=== PATIENT | female | born 1950 | race Caucasian/White ===

== ENCOUNTER 2020-11-27 11:52 | Emergency (ER) | payer OTHER ==
[~2020-11-27] VITALS: Ht 139.7 cm; Wt 61.0 kg
[2020-11-27 11:52] VITALS: BP 171/82
[2020-11-27] MEDS ORDERED: ACETAMINOPHEN 500 MG TABLET PO ONE ×2 (12:15→13:18)
[2020-11-27] MEDS ORDERED: IBUPROFEN 600 MG TABLET. PO ONE (12:15)
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
== END 2020-11-27 13:56 | disposition home or self-care (01) ==
LOC: ER 11:52
DX: S60.012A Contusion of left thumb without damage to nail, initial encounter (principal); V89.2XXA Person injured in unspecified motor-vehicle accident, traffic, initial encounter; Y93.89 Activity, other specified; Y92.89 Other specified places as the place of occurrence of the external cause; Y99.8 Other external cause status
CPT/HCPCS: 73130; 99283

== ENCOUNTER 2021-07-19 11:04 | Observation (INO) | payer MEDICARE, BC ==
[~2021-07-19] VITALS: Ht 139.7 cm; Wt 61.8 kg
--- NOTE | 2021-07-19 11:29 | PHYS DOC ---
Past History Past Medical History: Asthma, COPD, CVA Additional Past Medical Histor: DVT (TIKA TANNER APRN) Past Surgical History: Hysterectomy, Other Additional Past Surgical Histo: Bladder sx, Carpal tunnel, trigger finger (TIKA TANNER APRN) Alcohol Use: None (TIKA TANNER APRN) General Adult EDM: Chief Complaint: SHORTNESS OF BREATH HPI: HPI: Patient is a 71-year-old female that presents today with increased shortness of breath. Patient states on June 24 her and her left and traveled by car to [place] and to [place] they returned on July 08. Patient states that since July 08 she has had increasing shortness of breath today she is unable to get a deep breath, not able to walk short distances, unable to talk in complete sentences. Patient does have a history of COPD and asthma. Patient states that she had COVID-19 vaccines, dates that she had had the injections 2 weeks before leaving on their trip on June 24. Patient states that throughout the travels they did take frequent breaks for walking around because she does have a history of clots in the past. Initial O2 Sat 84% on room air. (TIKA TANNER APRN) Review of Systems: Review of Systems: Constitutional: Denies fever or chills Eyes: Denies change in visual acuity HENT: Denies nasal congestion or sore throat Respiratory: shortness of breath Cardiovascular: Denies chest pain or edema GI: Denies abdominal pain, nausea, vomiting, bloody stools or diarrhea : Denies dysuria Musculoskeletal: Denies back pain or joint pain Integument: Denies rash Neurologic: Denies headache, focal weakness or sensory changes Endocrine: Denies polyuria or polydipsia Lymphatic: Denies swollen glands Psychiatric: Denies depression or anxiety (TIKA TANNER APRN) Allergies: Allergies: Allergies Coded Allergies Type Severity Reaction Last Updated Verified niacin Allergy Unknown 11/27/20 Yes (TIKA TANNER APRN) Physical Exam: PE: Constitutional: Well developed, well nourished, acute distress [] HENT: Normocephalic, atraumatic, bilateral external ears normal, oropharynx dry, no oral exudates, nose normal. [] Eyes: PERRLA, EOMI, conjunctiva normal, no discharge. [] Neck: Normal range of motion, no tenderness, supple, stridor noted. [] Cardiovascular:Heart rate regular rhythm, no murmur [] Lungs & Thorax: Increased work of breathing noted, bilateral breath sounds diminished with scattered wheezes. Abdomen: Bowel sounds normal, soft, no tenderness, no masses, no pulsatile masses. [] Skin: Warm, diaporitic no erythema, no rash. [] Back: No tenderness, no CVA tenderness. [] Extremities: No tenderness, no cyanosis, no clubbing, ROM intact, no edema. [] Neurologic: Alert and oriented X 3, normal motor function, normal sensory function, no focal deficits noted. [] Psychologic: Affect normal, judgement normal, mood normal. [] (TIKA TANNER APRN) Current Patient Data: Labs: Laboratory Tests Test 07/19/21 11:18 07/19/21 11:22 07/19/21 11:39 White Blood Count 11.5 x10^3/uL Red Blood Count 3.95 x10^6/uL Hemoglobin 12.9 g/dL Hematocrit 38.9 % Mean Corpuscular Volume 99 fL Mean Corpuscular Hemoglobin 33 pg Mean Corpuscular Hemoglobin Concent 33 g/dL Red Cell Distribution Width 14.1 % Platelet Count 461 x10^3/uL Neutrophils (%) (Auto) 68 % Lymphocytes (%) (Auto) 19 % Monocytes (%) (Auto) 7 % Eosinophils (%) (Auto) 5 % Basophils (%) (Auto) 1 % Neutrophils # (Auto) 7.8 x10^3uL Lymphocytes # (Auto) 2.2 x10^3/uL Monocytes # (Auto) 0.8 x10^3/uL Eosinophils # (Auto) 0.6 x10^3/uL Basophils # (Auto) 0.1 x10^3/uL Sodium Level 138 mmol/L Potassium Level 4.0 mmol/L Chloride Level 101 mmol/L Carbon Dioxide Level 24 mmol/L Anion Gap 13 Blood Urea Nitrogen 14 mg/dL Creatinine 1.1 mg/dL Estimated GFR (Cockcroft-Gault) 48.7 BUN/Creatinine Ratio 13 Glucose Level 110 mg/dL Calcium Level 9.3 mg/dL Total Bilirubin 0.2 mg/dL Aspartate Amino Transf (AST/SGOT) 24 U/L Alanine Aminotransferase (ALT/SGPT) 30 U/L Alkaline Phosphatase 87 U/L Total Protein 8.0 g/dL Albumin 3.7 g/dL Albumin/Globulin Ratio 0.9 Influenza Type A (Rapid) Negative Influenza Type B (Rapid) Negative SARS-CoV-2 Antigen (Rapid) Negative Blood Gas pH 7.35 Blood Gas PCO2 49 mmHg Blood Gas PO2 220 mmHg Blood Gas HCO3 27 mmol/L Arterial Bld O2 Saturation (Calc) 100 % FiO2 36 % Current Medications Medications (Trade) Dose Ordered Sig/Shiva Route PRN Reason Start Time Stop Time Status Last Admin Dose Admin Albuterol/ Ipratropium (Duoneb) 3 ml 1X ONCE NEB 07/19/21 11:30 07/19/21 11:32 DC 07/19/21 11:42 Dexamethasone Sodium Phosphate (Decadron) 10 mg 1X ONCE IVP 07/19/21 11:30 07/19/21 11:32 DC 07/19/21 11:42 Labetalol HCl (Normodyne) 10 mg 1X ONCE IVP 07/19/21 11:45 07/19/21 11:46 DC 07/19/21 11:43 Vital Signs: Vital Signs Date Time Temp Pulse Resp B/P (MAP) Pulse Ox O2 Delivery O2 Flow Rate FiO2 07/19/21 11:18 102 22 98 Nasal Cannula 3.0 07/19/21 11:10 98.4 (TIKA TANNER WAXING MACHINE OPERATOR) EKG: EKG: EKG done at [address] Candelaria is no STEMI , interpretation shows sinus rhythm with a leftward axis noted [] (TIKA TANNER WAXING MACHINE OPERATOR) Radiology/Procedures: Radiology/Procedures: [PROCEDURE: CHEST AP ONLY XR CHEST 1V CLINICAL INDICATIONS: Reason: shortness of breath / Spl. Instructions: / History: COMPARISON: None available. Findings: Calcified granuloma of the right midlung zone is seen. No acute lung infiltrate or pleural effusion or pulmonary edema or lung mass or pneumothorax is seen. The heart size, pulmonary vasculature, mediastinum and both kae are unremarkable. IMPRESSION: No acute radiographic abnormality is seen. Electronically signed by: Terry Sanchez MD (07/19/2021 11:52 AM) [id number]] (TIKA TANNER APRN) Heart Score: C/O Chest Pain: N/A Risk Factors: Risk Factors: DM, Current or recent (<one month) smoker, HTN, HLP, family history of CAD, obesity. Risk Scores: Score 0 - 3: 2.5% MACE over next 6 weeks - Discharge Home Score 4 - 6: 20.3% MACE over next 6 weeks - Admit for Clinical Observation Score 7 - 10: 72.7% MACE over next 6 weeks - Early Invasive Strategies (TIKA TANNER APRN) Course & Med Decision Making: Course & Med Decision Making Pertinent Labs and Imaging studies reviewed. (See chart for details) 1141 after further discussion with the nursing staff and Dr. Candelaria it was decided to place patient on BiPAP. 12:00 reexamined patient, less audible wheezes continuing to have wheezes in lungs but air movement is noted. Respiratory rate down to 22 a minute, sats at 94% on 5 L. No BiPAP at this time we will continue to monitor. Rapid flu and Covid negative at this time. Concern for PE patient is unable to lie flat at this time will discuss with Dr. Candelaria. [address] Ace regarding admitting to the hospital overnight for observation he is agreeable, requesting a PE study due to recent travels. Spoke to patient about admitting and the need for a PE study patient is agreeable with this will be ordered. (TIKA TANNER APRN) Dragon Disclaimer: Dragon Disclaimer: This electronic medical record was generated, in whole or in part, using a voice recognition dictation system. (TIKA TANNER APRN) Departure Departure: Impression: Primary Impression: Shortness of breath Additional Impression: COPD exacerbation Disposition: ADMITTED INPATIENT Condition: STABLE Referrals: DONNA SCHERER MD (PCP) Attending Signature Attending Signature I have reviewed the PA/STUNT MAN's note and plan of care. I was available for consultation as needed during the patient's visit in the emergency department. I agree with the clinical impression, plan, and disposition. (JODIE CANDELARIA DO) TIKA TANNER APRN Jul 19, 2021 11:28 JODIE CANDELARIA DO Jul 20, 2021 00:47
[2021-07-19] MEDS ORDERED: DEXAMETHASONE SOD PHOS 10 MG/ML VIAL. IVP ONE (11:30)
[2021-07-19] MEDS ORDERED: IPRATRPIUM/ALBUTEROL 0.5/2.5MG 3 ML NEBU. NEB ONE (11:30)
[2021-07-19] MEDS ORDERED: LABETALOL 20 MG/4 ML DISP.SYRIN. IVP ONE (11:45)
[2021-07-19 11:53] LABS: CALCIUM 9.3 mg/dL (8.5-10.1); CREATININE 1.1 mg/dL (0.6-1.0); GFR 48.7
[2021-07-19 11:54] LABS: BASO # 0.1 x10^3/uL (0.0-0.2); BASO % 1 % (0-3); EOS # 0.6 x10^3/uL (0.0-0.7); EOS % 5 % (0-3); HEMATOCRIT 38.9 % (36.0-47.0); HEMOGLOBIN 12.9 g/dL (12.0-15.5); LYMPH # 2.2 x10^3/uL (1.0-4.8); LYMPH % 19 % (24-48); MEAN CORPUSCULAR HEMOGLOBIN 33 pg (25-35); MEAN CORPUSCULAR HGB CONC 33 g/dL (31-37); MEAN CORPUSCULAR VOLUME 99 fL (79-100); MONO # 0.8 x10^3/uL (0.0-1.1); MONO % 7 % (0-9); NEUT # 7.8 x10^3uL (1.8-7.7); NEUT % 68 % (31-73); PLATELET COUNT 461 x10^3/uL (140-400); RED BLOOD COUNT 3.95 x10^6/uL (3.50-5.40); RED CELL DISTRIBUTION WIDTH 14.1 % (11.5-14.5); WHITE BLOOD COUNT 11.5 x10^3/uL (4.0-11.0)
--- NOTE | 2021-07-19 11:55 | RAD ---
XR CHEST 1V CLINICAL INDICATIONS: Reason: shortness of breath / Spl. Instructions: / History: COMPARISON: None available. Findings: Calcified granuloma of the right midlung zone is seen. No acute lung infiltrate or pleural effusion or pulmonary edema or lung mass or pneumothorax is seen. The heart size, pulmonary vasculat ure, mediastinum and both kae are unremarkable. IMPRESSION: No acute radiographic abnormality is seen. Electronically signed by: Terry Sanchez MD (07/19/2021 11:52 AM) [id number]
[2021-07-19 11:58] LABS: ALBUMIN 3.7 g/dL (3.4-5.0); ALBUMIN/GLOBULIN RATIO 0.9 (1.0-1.7); TOTAL BILIRUBIN 0.2 mg/dL (0.2-1.0)
[2021-07-19 12:12] LABS: INFLUENZA A PATIENT NEGATIVE (NEGATIVE); INFLUENZA B PATIENT NEGATIVE (NEGATIVE)
[2021-07-19 12:48] LABS: BGAS PH 7.35 (7.35-7.45)
--- NOTE | 2021-07-19 12:56 | EKG ---
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
[2021-07-19] MEDS ORDERED: IOHEXOL 350 MG/ML 100 ML VIAL. IV ONE (14:15)
[2021-07-19] MEDS ORDERED: IPRATRPIUM/ALBUTEROL 0.5/2.5MG 3 ML NEBU. NEB PRN ×2 (14:15→18:30)
[2021-07-19] MEDS ORDERED: CONTRAST GIVEN. MC PRN (14:30)
--- NOTE | 2021-07-19 14:32 | RAD ---
EXAM: CT angiography of the chest with intravenous contrast. HISTORY: Shortness of air. TECHNIQUE: Computed tomographic images of the chest were obtained following the administration of int ravenous contrast according to angiography protocol. Multiplanar reformatting was performed and three dimensional maximum intensity projection images were obtained. *One or more of the following individualized dose reduction techniques were utilized for this examina tion: 1. Automated exposure control. 2. Adjustment of the mA and/or kV according to patient size. 3. Use of iterative reconstruction technique. COMPARISON: None. FINDINGS: There is no evidence of pulmonary embolism. The heart is upper normal in size. There is a s mall pericardial effusion. The aorta is normal in caliber. There is aortic and aortic branch vessel a therosclerosis. There are prominent mediastinal and hilar lymph nodes. For reference purposes, there is a precarinal lymph node measuring 1.1 cm. There is no pneumothorax or pleural effusion. There is nonspecific groundglass opacity within the rig ht lung apex and right paramediastinal upper lobe anterior medial right middle lobe. There are tiny s cattered groundglass nodular opacities within the peripheral aspects of both lungs in a predominantly lower lobe distribution. There is a 3 mm noncalcified nodule within the lateral right lower lobe adj acent 2 mm nodule within the right pleural fissure, the latter of which is likely a fissural lymph no de. There is hepatomegaly and hepatic steatosis. There are degenerative changes involving the spine. Ther e is no acute or suspicious osseous finding. IMPRESSION: 1. No convincing pulmonary embolism. 2. Nonspecific groundglass opacity within the right lung apex and medial right upper and middle lobes due to atelectasis or interstitial infiltrate. There is also nonspecific nodular groundglass opacity within the peripheral aspects of both lungs which may be infectious or inflammatory in etiology. No consolidated pneumonia is seen. 3. 3 mm solid right lower lobe pleural nodule. This is likely benign based on size. Follow-up can be performed in one year if there are risk factors for for neoplasm. 4. Small pericardial effusion. 5. Hepatomegaly and hepatic steatosis. Electronically signed by: Henny Hernández MD (07/19/2021 2:30 PM) [facility]
[2021-07-19 17:13] VITALS: BP 170/79
[2021-07-19] MEDS ORDERED: MULT-245 PO (18:10)
[2021-07-19] MEDS ORDERED: APIX5TAB3 PO (18:10)
[2021-07-19] MEDS ORDERED: PANT40TA6 PO (18:10)
[2021-07-19] MEDS ORDERED: citalopram PO (18:10)
[2021-07-19] MEDS ORDERED: CALC-71 PO (18:10)
[2021-07-19] MEDS ORDERED: CLOP75TA57 PO (18:10)
[2021-07-19] MEDS ORDERED: ATOR20TA58 PO (18:10)
[2021-07-19] MEDS ORDERED: FLUT16SP21 NS (18:10)
[2021-07-19] MEDS ORDERED: MONT10TA80 PO (18:10)
[2021-07-19] MEDS ORDERED: ASPI-889 PO (18:10)
[2021-07-19] MEDS ORDERED: levothyroxine sodium PO (18:10)
[2021-07-19] MEDS ORDERED: FENO105T3 PO (18:10)
[2021-07-19] MEDS ORDERED: advair INH (18:10)
[2021-07-19] MEDS ORDERED: MV-M1TAB7 PO (18:10)
[2021-07-19] MEDS ORDERED: CARV25TA2 PO (18:10)
[2021-07-19] MEDS ORDERED: CETI10TA30 PO (18:10)
[2021-07-19] MEDS ORDERED: AZITHROMYCIN 250 MG TABLET. PO ONE (18:15)
--- NOTE | 2021-07-19 18:45 | HP ---
ADMIT DATE: 07/19/2021 HISTORY OF PRESENT ILLNESS: The patient is a 71-year-old female patient who presented to the Emergency Room with a complaint of shortness of breath. She also complained of chest tightness and cough without any sputum. She denied any hemoptysis or chest pain. According to her, she drove with her to [place] and to [place] and returned back on 07/08/2021. It took them about 8 days of driving before they arrived here and since 07/08/2021, she has had increasing shortness of breath that has been worsening. She is unable to walk even short distances, unable to talk in complete sentences. She does have a history of COPD and bronchial asthma. She stated that she had her COVID-19 vaccines. Her last injection was 2 weeks prior to traveling to [place]. She stated that throughout her travel, they did take frequent breaks and were walking around because she does have a history of clots in the past and when she arrived, she was hypoxic with oxygen saturation at 84% on room air. She was extensively investigated and has had lab work as well as imaging studies. Her EKG showed that she was in sinus rhythm with no evidence of STEMI. Her chest x-ray showed no acute radiographic abnormalities seen. Her lab work showed that her white cell count was slightly high at 11,500, hemoglobin 12.9, hematocrit 39, MCV 99 and platelet count of 161,000 with normal manual differential. Her serum sodium 138, potassium 4, chloride 101, bicarbonate 24. Her blood gases showed that her pH was 7.35, pCO2 of 49, pO2 of 220. Her influenza A and B were negative, and her coronavirus by rapid testing was negative. The patient was treated with dexamethasone as well as albuterol and Atrovent and was admitted for further evaluation and treatment. PAST MEDICAL HISTORY: Significant for bronchial asthma, hypertension, hyperlipidemia, hypothyroidism. She apparently has had cerebrovascular accident x2, although she seemed to be fully functional with very little residual deficit. PAST SURGICAL HISTORY: Significant for bilateral cataract extraction, bladder suspension, total abdominal hysterectomy, carpal tunnel and trigger finger surgery. It is worth noting that she apparently has a history of DVT for which she is actually on Eliquis. ALLERGIES: SHE IS ALLERGIC TO NIACIN. MEDICATIONS: She is currently on the following medication: She is currently on Protonix 40 mg once a day, Eliquis 5 mg twice a day, aspirin 81 mg once a day, calcium 500 mg 1 tablet once a day, Zyrtec 10 mg once a day, vitamin D3 one tablet once a day, Plavix 75 mg once a day, fenofibrate 1 tablet once a day, fluticasone 1 spray to each nostril twice a day, Advair Diskus 1 puff twice a day, levothyroxine sodium one tablet once a day, multivitamin 1 tablet once a day. She is also on Singulair 10 mg once a day and atorvastatin calcium at bedtime. She is also on citalopram hydrobromide 1 tablet at bedtime and triamcinolone cream applied topically once a day. FAMILY HISTORY: She has one brother and two sisters, one of her sisters has colon cancer. Her father because of complication of Parkinson's disease and mother because of uterine cancer. SOCIAL HISTORY: She is , has a son and a daughter. She never smoked, does not drink alcohol or recreational drugs. She worked in [employer] for about 25 years and she is currently retired. REVIEW OF SYSTEMS: As per history of present illness. PHYSICAL EXAMINATION: GENERAL: On arrival to the Emergency Room, the patient was slightly tachypneic, but there was no pallor, jaundice, cyanosis or thyromegaly. No jugular venous distention. No limb edema. VITAL SIGNS: Her heart rate was 105, blood pressure was 250/120, respiratory rate was 24 and oxygen saturation was 84% on room air, that improved to 98% on 4 liters of oxygen. HEAD, EYES, EARS, NOSE, AND THROAT: Normocephalic, atraumatic. NECK: Supple. HEART: Showed normal first and second heart sounds. No gallop, rub or murmur. CHEST: Showed central trachea, equal bilateral chest expansion air entry, vesicular breath sounds with bilateral scattered rhonchi. ABDOMEN: Distended, soft, nontender. NEUROLOGIC: She was alert, oriented x3 with normal motor and sensory function. Her affect, judgment and mood were normal. LABORATORY DATA: Her lab work showed a white cell count of 11,500, hemoglobin 12.9, hematocrit 38.9, MCV 99 and platelet count of 161,000. Her arterial blood gases showed a pH of 7.35, pCO2 of 49, pO2 of 220, bicarbonate 27 and her oxygen saturation was 100% on FiO2 of 36%. Her chemistry showed a serum sodium 138, potassium 4, chloride 101, bicarbonate 24, anion gap of 13, BUN 14, creatinine 1.1. Estimated GFR was 48 mL per minute. Her glucose 110, calcium was 9.3. Total bilirubin, AST, ALT, alkaline phosphatase were normal. Total protein 8, albumin was 3.7. Her influenza A and B were negative and COVID-19 rapid testing was negative. The PCR is still pending at the time of this dictation. Her chest x-ray showed no acute radiographic abnormalities seen and the CT angio of the chest showed that the patient has no convincing pulmonary embolism, nonspecific ground-glass opacity within the right lung apex and medial right upper and middle lobes due to atelectasis or interstitial infiltrate. There is also nonspecific nodular ground-glass opacity within the peripheral aspects of both lungs, which may be infectious or inflammatory in etiology. No consolidated pneumonia is seen. He has 3 mm solid right lower lobe pleural nodule. This is likely benign based on size. Followup can be performed in 1 year. She has also small pericardial effusion and hepatomegaly and hepatic steatosis. ASSESSMENT AND PLAN: The patient was admitted to the hospital with bronchial asthma exacerbation. She also has probably community-acquired pneumonia. Other medical problems include hypertension, hyperlipidemia, hypothyroidism, cerebrovascular accident x2. She also has history of DVT for which she is on Eliquis. My plan is obviously to reconcile all her medication. I will add also antibiotic in the form of Rocephin and Zithromax and continue with steroid treatment and monitor her response closely. FAROOQ/JUANITA DR: Lisseth TID: [id number]
--- NOTE | 2021-07-19 19:10 | NUR ---
Admission note, nursing: Pt was seen by RN and MD at admission. Pt alert and oriented x 4, pleasant, cooperative; she is a good historian. Assessment done, orientation to room amenities and unite routine done. Home medication reconciled.
[2021-07-19 19:21] VITALS: BP 185/68
[2021-07-19] MEDS: APIXABAN 5 MG TABLET. PO SCH (19:37)
[2021-07-19] MEDS: ACETAMINOPHEN 500 MG TABLET PO PRN (19:37)
[2021-07-19] MEDS ORDERED: FLUT1DIS3 IH (20:29)
[2021-07-19] MEDS ORDERED: LEVO200T5 PO (20:29)
[2021-07-19] MEDS ORDERED: CITA20TA6 PO (20:29)
--- NOTE | 2021-07-19 20:49 | NUR ---
Called [facility] pharmacy to confirm dosages of remaining home meds. Adjusted in med rec.
[2021-07-19] MEDS ORDERED: CITALOPRAM PO SCH (21:00)
[2021-07-19] MEDS ORDERED: ATORVASTATIN CALCIUM 20 MG TABLET PO SCH (21:00)
[2021-07-19] MEDS ORDERED: ADVAIR INH SCH (21:00)
[2021-07-19] MEDS ORDERED: MONTELUKAST 10 MG TABLET. PO SCH (21:00)
[2021-07-19] MEDS ORDERED: CITALOPRAM 20 MG TABLET. PO SCH (21:00)
[2021-07-19] MEDS ORDERED: NON FORMULARY ITEM (Mv-Mn/Iron/Fa/Herbal Cmplx#190 (Vitamin D3 Complete Caplet) 1 EACH) PO SCH (21:00)
[2021-07-19] MEDS: CARVEDILOL 12.5 MG TABLET PO SCH (21:20)
[2021-07-19 23:17] VITALS: BP 128/71
[2021-07-20 05:28] VITALS: BP 137/74
[2021-07-20] MEDS ORDERED: LEVOTHYROXINE 100 MCG TABLET PO SCH (06:00)
[2021-07-20 06:06] LABS: HEMATOCRIT 36.4 % (36.0-47.0); HEMOGLOBIN 11.7 g/dL (12.0-15.5); RED BLOOD COUNT 3.71 x10^6/uL (3.50-5.40); WHITE BLOOD COUNT 12.1 x10^3/uL (4.0-11.0)
[2021-07-20 06:18] LABS: CALCIUM 8.8 mg/dL (8.5-10.1); CREATININE 1.2 mg/dL (0.6-1.0); POTASSIUM 3.7 mmol/L (3.5-5.1)
[2021-07-20] MEDS ORDERED: CALCIUM CARB/VIT D3 500/200 TABLET PO SCH (08:00)
[2021-07-20] MEDS ORDERED: BUDESONIDE 0.5 MG/2 ML NEBU NEB PRN (08:00)
[2021-07-20] MEDS: APIXABAN 5 MG TABLET. PO SCH (08:14)
[2021-07-20 08:15] VITALS: BP 137/74
[2021-07-20] MEDS: ACETAMINOPHEN 500 MG TABLET PO PRN (08:15)
[2021-07-20] MEDS: CARVEDILOL 12.5 MG TABLET PO SCH (08:15)
[2021-07-20] MEDS ORDERED: FLUTICASONE 50MCG/NASAL SPRAY 16GM BOTTLE. NS SCH (09:00)
[2021-07-20] MEDS ORDERED: NON FORMULARY ITEM (Fluticasone/Salmeterol (Advair 250-50 Diskus) 1 EACH) IH SCH (09:00)
[2021-07-20] MEDS ORDERED: LEVOTHYROXINE SODIUM PO SCH (09:00)
[2021-07-20] MEDS ORDERED: MULTIVITAMIN with MINERAL TABLET. PO SCH (09:00)
[2021-07-20] MEDS ORDERED: DEXAMETHASONE SOD PHOS 10 MG/ML VIAL. IVP SCH (09:00)
[2021-07-20] MEDS ORDERED: FENOFIBRATE NANOCRYSTALLIZED 145 MG TABLET PO SCH (09:00)
[2021-07-20] MEDS ORDERED: PANTOPRAZOLE 40 MG TABLET. PO SCH (09:00)
[2021-07-20] MEDS ORDERED: AZITHROMYCIN 250 MG TABLET. PO SCH (09:00)
[2021-07-20] MEDS ORDERED: ASPIRIN ENTERIC COATED 81 MG TABLET.DR. PO SCH (09:00)
[2021-07-20] MEDS ORDERED: CETIRIZINE HCL 10 MG TABLET PO SCH (09:00)
[2021-07-20] MEDS ORDERED: CLOPIDOGREL BISULFATE 75 MG TABLET PO SCH (09:00)
--- NOTE | 2021-07-20 09:10 | DS ---
DATE OF DISCHARGE: 07/20/2021 ATTENDING PHYSICIAN: Dr. Ace. FINAL DISCHARGE DIAGNOSES: 1. Acute exacerbation of asthma. 2. Diffuse ground glass appearing infiltrates consistent with community-acquired pneumonia. 3. COVID-19 and influenza ruled out. 4. History of deep vein thrombosis, on anticoagulation. 5. Recent road trip. 6. Hypothyroidism, on replacement. 7. Old cerebrovascular accident with minimal residual. 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 She was admitted through the ED with increasing wheezing, shortness of breath. COVID swab was negative. The CT scan showed no blood clots, but diffuse nonspecific ground glass appearing infiltrate consistent with community-acquired pneumonia. PHYSICAL EXAMINATION: Please see the dictated note. PERTINENT LABORATORY AND X-RAY STUDIES: Her coronavirus rapid and PCR test were all negative. She has had her vaccine. Her influenza swabs were negative. Her hemoglobin was 12.9 g/dL with a white count of 11,500. Her chemistry panel was fairly unremarkable and normal electrolytes. Creatinine was 1.1 mg/dL. Nonfasting blood sugar 110 mg/dL. Transaminases were normal. COURSE IN HOSPITAL: The patient was admitted. She was started on intravenous steroids along with antibiotics, Rocephin and Zithromax. She did well. Shortness of breath improved. She had adequate saturation on room air. By the next hospital day, she was doing better. She wanted to go home. I felt this was reasonable. I recommended 7 more days of cephalexin 500 mg p.o. t.i.d., Zithromax 500 mg p.o. daily and prednisone 40 mg p.o. daily with no tapering necessary. At this time, her other home meds are unchanged. She should continue her Eliquis 5 mg b.i.d., Lipitor, calcium, Coreg 12.5 mg b.i.d., cetirizine, citalopram, fenofibrate, Synthroid, montelukast, Protonix, doses unchanged. I have held the aspirin for now since she is already on Plavix and Eliquis. Again prescriptions for 7 more days of cephalexin and Zithromax along with prednisone. She will follow up as scheduled with Dr. Pretty. She was discharged from our hospital in stable condition with explicit instruction and followup care. Total discharge time spent [address]: Cullen TID: [id number] CC: Julien Pretty MD
--- NOTE | 2021-07-20 10:34 | NUR ---
PT WHEELED OUT TO THE FRONT AND PICKED UP BY HER . PT HAS SCRIPTS AND DISCHARGE PAPERWORK. IV AND HEART MONITOR REMOVED.
== END 2021-07-20 10:35 | disposition still patient (30) ==
LOC: ER 11:04 → INTOOBSV 16:36 → 1 SOUTH 16:36
PROVIDERS: ADMIT Internal Medicine; ATTEND Internal Medicine
DX: J45.901 Unspecified asthma with (acute) exacerbation (principal); Z20.822 Contact with and (suspected) exposure to COVID-19; J18.9 Pneumonia, unspecified organism; I10 Essential (primary) hypertension; E03.9 Hypothyroidism, unspecified; E78.5 Hyperlipidemia, unspecified; J44.1 Chronic obstructive pulmonary disease with (acute) exacerbation; Z86.73 Personal history of transient ischemic attack (TIA), and cerebral infarction without residual deficits; Z98.41 Cataract extraction status, right eye; Z98.42 Cataract extraction status, left eye; Z79.01 Long term (current) use of anticoagulants; Z86.718 Personal history of other venous thrombosis and embolism; Z90.710 Acquired absence of both cervix and uterus; Z79.899 Other long term (current) drug therapy; Z98.890 Other specified postprocedural states; Z79.82 Long term (current) use of aspirin
CPT/HCPCS: 36415; 71045; 71275; 80048; 80053; 82803; 85025; 85027; 87426; 87804; 93005; 94640; 96365; 96375; 96376; 99285; G0378; J0696; J1100; J3490; Q9967; U0003; G0379